=== PATIENT | female | born 1980 | race Caucasian/White ===

== ENCOUNTER 2024-07-13 14:18 | Inpatient (IN) | payer SELFPAY ==
[2024-07-13] VITALS (60 sets, daily range): BP systolic 91–129; BP diastolic 57–81; PULSE 98–134; RESP 18–26; TEMP 37–37.5; O2SAT 84–100; BMI 19.6
--- NOTE | 2024-07-13 14:28 | XRR_ITS ---
PROCEDURE INFORMATION: Exam: XR Chest Exam date and time: 07/13/2024 2:50 PM Age: 43 years old Clinical indication: Device placement; Ett placement (vent status); Additional info: Intubated TECHNIQUE: Imaging protocol: Radiologic exam of the chest. Views: 1 view. COMPARISON: No relevant prior studies available. FINDINGS: Tubes, catheters and devices: Endotracheal tube tip is approximately 5 cm above the cynthia. Orogastric tube tip is in the stomach with the side port in the lower thoracic esophagus. Lungs: Unremarkable. No consolidation. Pleural spaces: Unremarkable. No pleural effusion. No pneumothorax. Heart/Mediastinum: Upper normal heart size, accentuated by portable technique. Bones/joints: Unremarkable. XR/XR chest 1V portable [id number] IMPRESSION: 1. Support hardware as above. 2. No acute findings.
[2024-07-13] MEDS: propofol 1,000 MG/100 ML INJ 1.7 MG IV (14:45)
[2024-07-13 14:53] LABS: ABG PCO2 64.4 mmHg (35-45); ABG PH Result 7.18 (7.35-7.45); Alveolar-Arterial Oxygen Gradi 20.8 mmHg (5-10); Arterial Blood Gas Hematocrit 30.2 % (37-47); Base Excess ABG -4.7 mmol/L (-2.0-2.0); Blood Gas Allen Test Pos; Blood Gas Operator Identificat CAK; Blood Gas Sample Site Radial, left; Blood Gas Sample Type Arterial; Blood Gas Tidal Volume 0.35; Carboxyhemoglobin 0.7 %THgb (0.4-20.1); HCO3 ABG 24.1 mmol/L (22-26); HGB O2 Sat 96.3 % (95-100); Ionized Calcium Level - ABG 1.2 mmol/L (1.1-1.4); Methemoglobin 1.4 % (0.4-1.5); Oxygen Device VENT; Oxygen Saturation ABG 98.4; PO2 FiO2 Ratio Arterial Blood 230; Potassium Level - ABG 4.5 mmol/L (3.5-5.0); Total Hemoglobin 9.8 g/dL (12-16)
[2024-07-13] MEDS: enoxaparin 40 mg/0.4 mL Syringe SUBCUT (15:09)
[2024-07-13] MEDS: pantoprazole 40 mg SDV IVP (15:10)
[2024-07-13] MEDS: methylPREDNISolone sod succ 125 mg/2 mL INJ IVP (15:10)
[2024-07-13] MEDS: morphine 4 mg/mL SDV 1 mL 2 MG IVP (15:14)
--- NOTE | 2024-07-13 15:18 | PM.HP ---
Providers/Chief Complaint Admitting Physician: Tani Roldan MD Chief Complaint: Resp Failure, COPD History of Present Illness Most of the history taken through the review from outside hospital. Ayla Dickens is a 43 year old female possible history of COPD, depression, anxiety, autism was brought into [facility] at around 8 PM on 07/12 with difficulty in breathing. Apparently patient has been getting short of breath for last 24 hours requiring albuterol inhalation multiple times. In the ER patient was agitated and received IV Benadryl, Solu-Medrol, IV magnesium and Xopenex every 2 hours. By morning patient's respiratory status continued to worsen and was requiring up to 6 L. As per the conversation from the ER physician patient went into respiratory arrest with her saturations going down to 50% and need to be intubated. Patient never lost pulse and did not have CPR. She was managed with ambo ventilation. First ABG postintubation showed a pH of 6.9 with a CO2 of 114, PaO2 of 225. Repeat ABG in 30 minutes showed pH of 7.1, pCO2 70, pO2 of 262. Other blood work showed white count of 17.4, hemoglobin of 10.3, platelet, 488, sodium of 137 with potassium 4.1, creatinine of 0.9, D-dimer of 0.66, magnesium of 2.7, UA negative for UTI. On arrival to the ICU patient was on Versed of 2, heart rate running at 120 bpm saturating 99%, blood pressure of 121 over 70 mmHg. Patient had episode of agitation after which her saturations went down to 70%. She was found to have elevated peak pressures going up to 42 Review of Systems General: Reports: ROS unobtainable due to endotracheal tube Medications/Allergies Allergies Allergy/AdvReac Type Severity Reaction Status Date / Time fentanyl Allergy Severe ALGY-Rash Verified 07/13/24 18:28 Penicillins Allergy Severe Unknown Verified 07/13/24 15:51 Vitals/I&O/Wt Last Vital Signs Temp 98.6 F 07/13/24 14:50 Pulse 125 H 07/13/24 14:50 Resp 26 H 07/13/24 15:14 BP 121/69 07/13/24 14:50 Pulse Ox 98 07/13/24 14:50 FiO2 30 07/13/24 14:26 Weight last 48 hrs Weight 56.812 kg Physical Exam Narrative: General: Intubated, sedated HEENT: PERRLA, pupils bilaterally equal and reactive Chest: Bilateral bronchial breath sounds all over lung martinez with diffuse spread rhonchi all over lung martinez left more than right, decreased air entry on the right side CVS: S1-S2 regular, no murmurs, tachycardia, no gallops, no rubs Abdomen: Soft, nontender, no organomegaly, bowel sounds present Neuro: No focal deficits, no facial deformity, AO x3, power 5/5 in all limbs Quick SOFA Score: Respiratory Rate: 20 Blood Pressure: 127/70 [place] Coma Scale: 6 qSOFA Score: 1 If qSOFA score 2 or greater, continue: PaO2/FiO2 Ratio (mmHg): 230 Blood Pressure Mean: 89 Bilirubin (mg/dl): 0.3 Platelets (x10?/ml): 388 Creatinine (mg/dl): 1.0 SOFA Score: 5 Evaluation: Current stage of sepsis: sepsis Sepsis stage criteria used: [facility] Sep-1 and Sepsis-3 Crystalloid fluids: less than 30 mL/kg crystalloid fluids ordered Reasons: heart failure Blood cultures ordered: Yes Possible source: pulmonary Focused Exam: Vital signs: Temp Pulse Resp BP Pulse Ox O2 Del Method FiO2 07/13/24 15:34 121 H 07/13/24 15:29 22 H 100 40 07/13/24 15:27 120 H 21 H 99 Mechanical Ventila tion 50 07/13/24 15:14 26 H 07/13/24 14:50 98.6 F 125 H 121/69 98 07/13/24 14:45 127 H 125/79 07/13/24 14:40 134 H 125/79 94 07/13/24 14:35 126 H 125/79 94 07/13/24 14:30 120 H 129/76 100 07/13/24 14:26 20 H 99 30 07/13/24 14:25 118 H 129/76 100 07/13/24 14:20 117 H 100 Date exam was performed: 07/13/24 Time exam was performed: 18:26 Sepsis Screen No Definite Risk 07/13/24 16:46 Respiratory Rate 20 breaths/min H (12 - 18) 07/13/24 16:40 Blood Pressure 127/70 mmHg 07/13/24 16:40 [place] Coma Scale Score 6 07/13/24 16:59 Quick SOFA Score 1 07/13/24 15:52 SOFA Score: ABG PO2/FiO2 Ratio 230 07/13/24 14:41 Shauna Coma Scale Score 6 07/13/24 16:59 Blood Pressure Mean 89 mmHg 07/13/24 16:40 Total Bilirubin 0.3 mg/dL (0.15-1.2) 07/13/24 16:11 Platelet Count 388 10^3/cmm (157-399) 07/13/24 16:11 Creatinine 1.0 mg/dL (0.5-0.9) H 07/13/24 16:11 Data 07/13/24 16:11 07/13/24 16:11 A&P Assessment and plan (1) Sepsis: SIRS: Tachycardic, Febrile, Leukocytosis Source: Pneumonia End organ damage: Acute infectious encephalopathy Lactic acid within normal limits Patient did not receive full 30 mL/kg BW given concerns for respiratory failure. (2) Acute respiratory failure with hypoxia and hypercapnia: (3) COPD exacerbation: (4) Methamphetamine abuse: (5) Respiratory acidosis: Plan 43-year-old female with possible past history of COPD was sent in as a transfer from outside hospital with concerns for respiratory failure found to have hypoxic and hypercapnic respiratory failure with concerns for respiratory acidosis. Acute hypoxic and hypercapnic respiratory failure: High peak pressures currently on mechanical ventilator. Stat chest x-ray, ABG. Sedation with propofol, Precedex. Not able to use fentanyl with a possible history of severe allergy. Dilaudid 0.2 every 1 hour as needed for analgesia. Maintain saturation 90%. Repeat chest x-ray and ABG every morning. Stat CBC, CMP, lactate, procalcitonin, sputum culture, blood culture, MRSA swab, respiratory viral panel, urinalysis, D-dimer, MRSA swab. Will plan for CT chest with or without contrast once D-dimer is available. For now start patient on ipratropium, Xopenex every 4 hour, Pulmicort twice daily. Solu-Medrol 125 mg stat followed by 40 mg every 6 hour. Empirically start patient on IV meropenem and azithromycin. Dose renally. If MRSA swab positive will add vancomycin. Strict input output charting, daily weights. Hu catheterization. Check echocardiogram. Amphetamine abuse: Urine drug screen at outside hospital positive for amphetamine and benzos. Treatment as above. Monitor for withdrawal. Tried calling patient's boyfriend's number on chart. Unable to get in touch. Left voice message. Will try to get further medical history about the patient if and when possible. Poor IV access. Will request a PICC line. Will restart home medications once medication list available. Further treatment as per clinical picture. Anesthesia: Propofol, Precedex. Cannot use fentanyl given past history of allergy. Glycemic control: Check A1c. Nutrition: N.p.o. CODE STATUS: Full code PUD prophylaxis: Protonix DVT prophylaxis: Lovenox Discharge planning: Possible home with home health once patient is medically stable. Admitted ICU. This documentation was created by [employer] digital asset coordinator software. Every effort was made to ensure accuracy of digital asset coordinator. Any obvious errors or omissions should be clarified with the author of the document. Attestations Medical Necessity Statement*: Admission for more than 2 midnights for management of acute hypoxic hypercapnic respiratory failure with respiratory acidosis, sepsis, amphetamine use Critical Care Time: The high probability of a clinically significant, sudden or life threatening deterioration of the patient's [pulmonary, cardiac] system(s) required my full and direct attention, intervention and personal management. The critical care time is as shown. This time is in addition to time spent performing any reported procedures but includes the following: [x] Data and vital sign review and interpretation [x] Patient assessment, examination and intervention [x] Documentation [x] Medication orders and management Critical Care Time (min): 90 Coding Level of Care Code Critical Care >/= 30 minutes Critical care time (in minutes): 90 The high probability of a clinically significant, sudden or life threatening deterioration, as referenced in this documentation, required my full and direct attention, intervention and personal management. The critical care time shown is in addition to time spent performing any reported separately billable procedures and includes the following: [x] Data and vital sign review and interpretation [x] Patient assessment, examination and intervention [x] Medication orders and management [x] Patient/Family updates as able [x] Care Coordination and Documentation. Other Coding Information This patient has a high probability of clinically significant, sudden or life threatening deterioration of the patient's (neurological/pulmonary/cardiac/renal/ID/endocrine) systems required my full, direct attention, the highest level of physician preparedness for urgent intervention and personal management. I managed/supervised life or organ supporting interventions that required frequent physician assessment. I devoted my full attention in the ICU to the direct care of this patient for the period of time indicated above. Time I spent with family or surrogate(s) is included only if the patient was incapable of providing necessary information or participating in decision making. This time includes the following services provided: Telemetry review Mechanical Ventilation Hemodynamic interpretation, assessment and management Review and interpretation of CXR Review and interpretation of lab values Review and interpretation of microbiologic data and culture results Review of medications and administration Review and interpretation of Nutrition requirements and management Discussion of management with other consultants and services Clinical update to family members Diagnoses Acute respiratory failure with hypoxia and hypercapnia J96.01; J96.02 COPD exacerbation J44.1 Methamphetamine abuse F15.10 Respiratory acidosis E87.29 Sepsis A41.9
[2024-07-13] MEDS: ipratropium 0.5 mg/2.5 mL Neb INHALATION ×2 (15:25→19:59)
[2024-07-13] MEDS: levalbuterol 0.63 mg/3 mL Neb INHALATION ×2 (15:25→19:59)
--- NOTE | 2024-07-13 15:27 | XRR_ITS ---
PROCEDURE INFORMATION: Exam: XR Chest Exam date and time: 07/13/2024 3:59 PM Age: 43 years old Clinical indication: Device placement; Picc; Additional info: Post picc insertion, brendan placing in icu 5. Should be ready at 1555 TECHNIQUE: Imaging protocol: Radiologic exam of the chest. Views: 1 view. COMPARISON: CR XR chest 1V portable [id number] 07/13/2024 2:50 PM FINDINGS: Tubes, catheters and devices: Interval placement of a right arm PICC with the tip in the lower SVC. Endotracheal tube tip is 2.9 cm above the cynthia. Orogastric tube tip is in the stomach with the side port above the GE junction in the lower thoracic esophagus. Lungs: No new airspace disease. No consolidation. Pleural spaces: Unremarkable. No pleural effusion. No pneumothorax. Heart/Mediastinum: Unremarkable. No cardiomegaly. Bones/joints: Unremarkable. XR/XR chest 1V portable [id number] IMPRESSION: 1. Right arm PICC tip in the lower SVC. 2. Orogastric tube tip in the stomach with the side port in the lower thoracic esophagus. Consider advancing 8-10 cm for more optimal positioning. 3. Remainder stable.
[2024-07-13] MEDS: magnesium sulfate premix 2 GM/50 ML PIGGYBACK IV (15:56)
[2024-07-13] MEDS: azithromycin 250 mg Tablet 500 MG PO (15:56)
[2024-07-13] MEDS: meropenem 1,000 mg SDV 1000 MG IVP ×2 (15:57→22:18)
[2024-07-13] MEDS: sodium chloride 0.9% 1,000 ML 75 ML IV (15:58)
[2024-07-13] MEDS: methylPREDNISolone sod succ 40 mg/mL INJ IVP ×2 (16:03→21:04)
[2024-07-13 16:30] LABS: Basophils % 0.1 %; Lymphocytes # 0.4 10^3/uL (0.8-4.8); Lymphocytes % 2.1 %; Mean Corpuscular HGB Conc 28.2 g/dL (30-55); Mean Corpuscular Hemoglobin 21.3 pg (27-33); Mean Corpuscular Volume 75.5 fl (85-98); Mean Platelet Volume 9.2 fL (7.4-10.4); Monocytes # 0.8 10^3/uL (0.2-0.9); Neutrophils # 19.01 10^3/uL (1.8-7.7); Nucleated Red Blood Cells % 0 %; Platelet Count 388 10^3/cmm (157-399); Red Blood Count 4.37 10^6/uL (3.85-5.65); Red Cell Distribution Width 15.6 % (12.1-15.1); White Blood Count 20.45 10^3/uL (3.29-11.43)
--- NOTE | 2024-07-13 16:40 | PICC.NOTE ---
Triple lumen PICC placed to right brachial vein. Referred to vascular access nurse for PICC placement due to poor access and need for multiple IV drips. Risks and benefits discussed and informed consent obtained ugently per Dr. Roldan. Pt sedated and intubated with no family available at this time. Right arm assessed with right brachial vein measuring 4.0 mm, straight, and apparent best choice for placement. Using sterile technique and MST, right brachial vein accessed x 1 stick. Mid-arm circumference measured 10 cm from right AC 27 cm. Trimmed cath 39 cm with 0 cm external length noted. CXR shows tip in lower SVC, in good position for use per radiologist. Line secured with stat-lock. Insertion site covered with Secureport IV and TSM. Report given to bedside nurse, TALITA Powell.
[2024-07-13 16:48] LABS: D Dimer 0.66 ug/mLFEU (0-0.59)
[2024-07-13 16:54] LABS: Lactic Sepsis W/Reflex 1.2 mmol/L (0.5-2.2)
[2024-07-13 17:11] LABS: Procalcitonin 0.35 ng/mL (0-0.5); Vitamin B12 318 pg/mL (232-1245)
--- NOTE | 2024-07-13 17:21 | XRR_ITS ---
PROCEDURE INFORMATION: Exam: XR Chest Exam date and time: 07/13/2024 5:51 PM Age: 43 years old Clinical indication: Device placement; Other: Og; Additional info: Og tube placement TECHNIQUE: Imaging protocol: Radiologic exam of the chest. Views: 1 view. COMPARISON: CR (CHEST, ) 07/13/2024 3:59 PM FINDINGS: Tubes, catheters and devices: Orogastric tube has been advanced in the interval with the side port now below the GE junction. The tip is not included in the field of view. Lungs: Unremarkable. No consolidation. Pleural spaces: Unremarkable. No pleural effusion. No pneumothorax. Heart/Mediastinum: Unremarkable. No cardiomegaly. Bones/joints: Unremarkable. XR/XR chest 1V portable [id number] IMPRESSION: Interval advancement of the orogastric tube with the side port now below the GE junction.
[2024-07-13 17:22] LABS: Alanine Aminotransferase 24 U/L (0-33); Alkaline Phosphatase 87 U/L (35-105); Anion Gap 18.9 (5-19); Aspartate Amino Transferase 34 U/L (0-32); Blood Urea Nitrogen 24 mg/dL (6-20); Calcium 8.9 mg/dL (8.5-10.5); Carbon Dioxide 20 mmol/L (22-29); Chloride 103 mmol/L (98-107); Creatinine Clr Calc Pharmacy 67.6428; Globulin 2.7 g/dL (1.3-4.6); Glomerular Filtration Rate 60.2 mL/min (90-130); Glucose 151 mg/dL (65-115); Iron 11 ug/dL (37-145); Osmolality Calculated 291 mOsm/kg (285-295); Percent Saturation 2.6 % (20-50); Potassium 4.9 mmol/L (3.5-5.1); Sodium 137 mmol/L (136-145); Total Bilirubin 0.3 mg/dL (0.15-1.2); Total Iron Binding Capacity 416 mcg/dl; Total Protein 6.7 g/dL (6.6-8.7); Unsaturated Iron Binding 405 ug/dL (112-347)
[2024-07-13] MEDS: dexmedeTOMIDine 0.9 % NaCL 400 MCG/100 ML PREMIX IV (17:33)
[2024-07-13 18:29] LABS: MRSA PCR OZH (swab) MRSA Detected (Not Detecte)
[2024-07-13] MEDS: propofol 1,000 MG/100 ML INJ 17.04 MG IV (19:20)
[2024-07-13] MEDS: VANCOMYCIN ADD-Vantage 750 MG in 0.9% NaCl ADD-Vantage 250 ML 250 MG IV (19:27)
[2024-07-13] MEDS: budesonide 0.5 mg/2 mL Neb INHALATION (19:59)
[2024-07-13 20:37] LABS: ABG PH Result 7.22 (7.35-7.45); Arterial Blood Gas Hematocrit 28.5 % (37-47); Base Excess ABG -3.5 mmol/L (-2.0-2.0); Blood Gas Allen Test Pos; Blood Gas Sample Site Radial, right; Blood Gas Sample Type Arterial; HCO3 ABG 24.6 mmol/L (22-26); HGB O2 Sat 84.1 % (95-100); Ionized Calcium Level - ABG 1.2 mmol/L (1.1-1.4); Methemoglobin 0.9 % (0.4-1.5); Oxygen Saturation ABG 85.7; PO2 ABG 57.7 mmHg (80.0-100.0); Potassium Level - ABG 4.3 mmol/L (3.5-5.0); Total Hemoglobin 9.3 g/dL (12-16)
[2024-07-13 20:38] LABS: ABG PCO2 60.2 mmHg (35-45)
[2024-07-13 20:40] LABS: Alveolar-Arterial Oxygen Gradi 15.3 mmHg (5-10); Blood Gas Operator Identificat JDB; Blood Gas Tidal Volume 0.38; Oxygen Device VENT; PO2 FiO2 Ratio Arterial Blood 164
--- NOTE | 2024-07-13 20:40 | PC.NURSE ---
Propofol rate Dr. Perdomo contacted about patient's continuing agitation. Patient's current propofol protocol only allows for a maximum of 50 mcg. Received verbal order from Dr. Perdomo for other propofol protocol with a maximum rate of 80 mcg.
[2024-07-13 20:58] LABS: Adenovirus Not Detected (NOT DETECT); Chlamydia Pneumoniae Not Detected (NOT DETECT); Coronavirus 229E,HKU1,NL63,OC4 Not Detected (NOT DETECT); Human Metapneumovirus Not Detected (NOT DETECT); Human Rhinovirus/Enterovirus Not Detected (NOT DETECT); Influenza A Not Detected (NOT DETECT); Influenza A H1 Not Detected (NOT DETECT); Influenza A H1-2009 Not Detected (NOT DETECT); Influenza A H3 Not Detected (NOT DETECT); Influenza B Not Detected (NOT DETECT); Mycoplasma Pneumoniae Not Detected (NOT DETECT); Parainfluenza Virus Type 1 Not Detected (NOT DETECT); Parainfluenza Virus Type 2 Not Detected (NOT DETECT); Parainfluenza Virus Type 3 Not Detected (NOT DETECT); Parainfluenza Virus Type 4 Not Detected (NOT DETECT); Respiratory Syncytial Virus A Not Detected (NOT DETECT); Respiratory Syncytial Virus B Not Detected (NOT DETECT); SARS-COV-2 Not Detected (NOT DETECT)
[2024-07-13] MEDS: propofol 1,000 MG/100 ML INJ 22.16 MG IV (23:36)
--- NOTE | 2024-07-13 23:37 | PC.NURSE ---
Addendum entered by Savanah Davis RN 07/13/24 23:48: Witnessed waste of Propofol 5ml. Original Note: Waste Wasted 5 ml of propofol. Witnessed by TALITA Pavon.
[2024-07-14] VITALS (19 sets, daily range): BP systolic 87–135; BP diastolic 60–87; PULSE 90–102; RESP 18–308; TEMP 36.2–36.6; O2SAT 93–100
[2024-07-14] MEDS: levalbuterol 0.63 mg/3 mL Neb INHALATION ×3 (00:19→07:44)
[2024-07-14] MEDS: ipratropium 0.5 mg/2.5 mL Neb INHALATION (00:19)
--- NOTE | 2024-07-14 00:50 | XRR_ITS ---
PROCEDURE INFORMATION: Exam: XR Chest Exam date and time: 07/14/2024 12:52 AM Age: 43 years old Clinical indication: Shortness of breath and other: Neck swelling; Patient HX: Worsening work of breathing under ventilation. Swelling to neck bilaterally. ; Additional info: Crepitus TECHNIQUE: Imaging protocol: Radiologic exam of the chest. Views: 1 view. COMPARISON: CR (CHEST, ) 07/13/2024 5:51 PM FINDINGS: Tubes, catheters and devices: The tip of the right upper extremity PICC line projects over the superior vena cava. The tip of the nasogastric tube is not seen, but projects below the gastroesophageal junction level. The tip of the endotracheal tube projects 7.8 cm above the cynthia. Lungs: No consolidation or pulmonary edema. Pleural spaces: No pleural effusion. No pneumothorax. Heart/Mediastinum: Cardiomediastinal silhouette is normal in size. Bones/joints: No acute fractures. Soft tissues: Soft tissue emphysema in bilateral supraclavicular regions is increased compared to previous exams. XR/XR chest 1V portable [id number] IMPRESSION: 1. Soft tissue emphysema in bilateral supraclavicular regions is increased compared to previous exams. CT of the neck and chest with IV contrast is recommended to further evaluate. 2. The tip of the right upper extremity PICC line projects over the superior vena cava. The tip of the nasogastric tube is not seen, but projects below the gastroesophageal junction level. The tip of the endotracheal tube projects 7.8 cm above the cynthia.
[2024-07-14] MEDS: midazolam hcl 100 MG/100 ML BAG IV (00:51)
[2024-07-14] MEDS: norepinephrine 4 MG/250 ML BAG 7.5 MG IV (01:06)
[2024-07-14 01:23] LABS: ABG PCO2 46.8 mmHg (35-45); ABG PH Result 7.33 (7.35-7.45); Alveolar-Arterial Oxygen Gradi 13.8 mmHg (5-10); Arterial Blood Gas Hematocrit 27.5 % (37-47); Base Excess ABG -1.3 mmol/L (-2.0-2.0); Blood Gas Allen Test Pos; Blood Gas Operator Identificat JDB; Blood Gas Sample Site Brachial, right; Blood Gas Sample Type Arterial; Carboxyhemoglobin 0.9 %THgb (0.4-20.1); HCO3 ABG 24.7 mmol/L (22-26); Ionized Calcium Level - ABG 1.2 mmol/L (1.1-1.4); Methemoglobin 1.1 % (0.4-1.5); Oxygen Device VENT; PO2 ABG 84.1 mmHg (80.0-100.0); PO2 FiO2 Ratio Arterial Blood 240; Potassium Level - ABG 4.6 mmol/L (3.5-5.0)
--- NOTE | 2024-07-14 02:14 | PC.NURSE ---
Verbal orders Received verbal order from Dr. Perdomo at 0045 for versed drip. Received verbal order from Dr. Perdomo at 0120 for levophed drip.
--- NOTE | 2024-07-14 02:18 | PM.MISC ---
Miscellaneous Note Purpose of Documentation: Was called earlier in the evening that the patient was attempting to sit up on the bed and moving her legs trying to unhook her keenan catheter despite a dose of 50mg/kg/min of Propofol, so her sedation was escalated to 80mg/kg/min. Midazolam was added due to concerns of developing hypotension. I was called by the nurse that RT noted that the patient had developed crepitus and lung sounds could not be appreciated, concerning for pneumomediastinum. A stat CXR was ordered and the patient was seen to have subq emphysema. [facility] was contacted who requested for a CT chest to r/o a pneumothorax first. The patient's CT neck w/ contrast and CTA chest was negative for a PTX, but positive for extensive pneumomediastinum.
--- NOTE | 2024-07-14 02:31 | CTR_ITS ---
PROCEDURE INFORMATION: Exam: CT Neck With Contrast Exam date and time: 07/14/2024 2:46 AM Age: 43 years old Clinical indication: Patient HX: Extensive subqu emphysema to neck bilaterally noted on latest cxr. Patient intubated with og and picc in place. ; Additional info: Respiratory failure, evaluate subcutaneous emphysema TECHNIQUE: Imaging protocol: Computed tomography of the neck with contrast. Radiation optimization: All CT scans at this facility use at least one of these dose optimization techniques: automated exposure control; mA and/or kV adjustment per patient size (includes targeted exams where dose is matched to clinical indication); or iterative reconstruction. Contrast material: OMNI 350; Contrast volume: 80 ml; Contrast route: INTRAVENOUS (IV); COMPARISON: CR (CHEST, ) 07/14/2024 12:52 AM RADIATION DOSE METRICS: Total DLP (mGy-cm): 112.15 FINDINGS: Tubes, catheters and devices: Nasogastric tube and endotracheal tube noted. Salivary glands: Normal. Glands are normal in size. Pharynx: Unremarkable. No significant tonsillar enlargement. Prevertebral and retropharyngeal spaces: Retropharyngeal air noted. Larynx: Unremarkable. Epiglottis is normal. Thyroid: Normal. No enlarged or calcified nodules. Trachea: Visualized trachea is unremarkable. Lungs: Unremarkable as visualized. Pleural spaces: No pneumothorax. Lymph nodes: Unremarkable. No lymphadenopathy. Bones/joints: Unremarkable. No acute fracture. Soft tissues: Extensive subcutaneous emphysema throughout the neck extending to the skull base and over the chest in a symmetric fashion. There is pneumomediastinum incompletely imaged. CT/CT neck w con* [id number] IMPRESSION: Extensive subcutaneous emphysema with pneumomediastinum. Source not identified. This is incompletely imaged.
--- NOTE | 2024-07-14 02:31 | CTR_ITS ---
PROCEDURE INFORMATION: Exam: CTA Chest With Contrast Exam date and time: 07/14/2024 2:51 AM Age: 43 years old Clinical indication: Patient HX: Extensive subqu emphysema to neck bilaterally noted on latest cxr. Patient intubated with og and picc in place. ; Additional info: Acute respiratory failure, rule out pneumothorax TECHNIQUE: Imaging protocol: Computed tomographic angiography of the chest with contrast. Exam focused on the arteries. 3D rendering (Not supervised by radiologist): MIP and/or 3D reconstructed images were created by the technologist. Radiation optimization: All CT scans at this facility use at least one of these dose optimization techniques: automated exposure control; mA and/or kV adjustment per patient size (includes targeted exams where dose is matched to clinical indication); or iterative reconstruction. Contrast material: OMNI 350; Contrast volume: 65 ml; Contrast route: INTRAVENOUS (IV); COMPARISON: CR (CHEST, ) 07/14/2024 12:52 AM RADIATION DOSE METRICS: Total DLP (mGy-cm): 281.69 FINDINGS: Tubes, catheters and devices: Nasogastric tube passes in the stomach. Endotracheal tube tip terminates 2 cm above the cynthia. Pulmonary arteries: Normal. No pulmonary emboli. Aorta: Unremarkable. No aortic aneurysm. No aortic dissection. Trachea: Trachea and airways grossly normal noted secrete disruption of the airways identified. Lungs: 4 mm pleural-based nodule left lower lob lobe. Adjacent 2 mm subpleural nodule just above this within the left lower lobe. Pleural spaces: No pneumothorax. Heart: Unremarkable. No cardiomegaly. No pericardial effusion. Mediastinal space: There is pneumomediastinum with air within all mediastinal stations. Lymph nodes: Unremarkable. No enlarged lymph nodes. Bones/joints: Unremarkable. No acute fracture. Soft tissues: Unremarkable. CT/CT angio chest PE protcl [id number] IMPRESSION: 1. Extensive pneumomediastinum without definite source identified. 2. Small left lower lobe pulmonary nodules of the 4 mm. Recommend interval follow-up per Fleischner society criteria.
[2024-07-14] MEDS: iohexol 350 mg/mL 500 mL Btl (per mL) IV (03:01)
[2024-07-14] MEDS: methylPREDNISolone sod succ 40 mg/mL INJ IVP (03:30)
[2024-07-14] MEDS: propofol 1,000 MG/100 ML INJ 8.52 MG IV (03:39)
[2024-07-14] MEDS: sodium chloride 0.9% 1,000 ML 75 ML IV (04:41)
--- NOTE | 2024-07-14 05:30 | PC.RESP ---
at 0025 changed ventilator rate to 20 per doctor order. at around 0035 patient trying to sit up in bed thrashing arms and legs and was not synchronous with ventilator. Requested nurse to call overnight hospitalist For ventilator changes. Order received entered patient room noted patient had swelling at the shoulder going into the neck with crepitus. Requested nurse to call doctor to come to bedside. doctor came to bedside stat chest x ray was ordered. ventilator order to Decrease the ventilator rate to 14 tidal volume to 300 and peep to 5
[2024-07-14 05:51] LABS: Basophils % 0.1 %; Hematocrit 28.5 % (36-47); Lymphocytes # 0.3 10^3/uL (0.8-4.8); Lymphocytes % 1.2 %; Mean Corpuscular HGB Conc 28.8 g/dL (30-55); Mean Corpuscular Hemoglobin 21.7 pg (27-33); Mean Corpuscular Volume 75.4 fl (85-98); Mean Platelet Volume 9.4 fL (7.4-10.4); Monocytes # 0.8 10^3/uL (0.2-0.9); Monocytes % 3.9 %; Neutrophils # 20.21 10^3/uL (1.8-7.7); Neutrophils % 94.1 %; Nucleated Red Blood Cells % 0 %; Platelet Count 339 10^3/cmm (157-399); Red Blood Count 3.78 10^6/uL (3.85-5.65); Red Cell Distribution Width 15.8 % (12.1-15.1); White Blood Count 21.48 10^3/uL (3.29-11.43)
--- NOTE | 2024-07-14 06:01 | PC.NURSE ---
Attempt to reach family members Dr. Hamilton attempted to reach contacts in patient's chart regarding patient transfer to [facility] in [place]. All attempts unsuccessful.
--- NOTE | 2024-07-14 06:02 | PC.NURSE ---
[facility] transfer oneill Spoke with Sruthi Young at [facility] regarding patient transfer. Patient received room assignment at [facility] CCU room 44. Receiving doctor is Dr. Mike Bhatia per transfer center.
[2024-07-14 06:07] LABS: ABG PCO2 47.7 mmHg (35-45); ABG PH Result 7.34 (7.35-7.45); Alveolar-Arterial Oxygen Gradi 16.6 mmHg (5-10); Arterial Blood Gas Hematocrit 27.9 % (37-47); Base Excess ABG -0.1 mmol/L (-2.0-2.0); Blood Gas Allen Test Pos; Blood Gas Operator Identificat JDB; Blood Gas Sample Site Brachial, right; Blood Gas Sample Type Arterial; Carboxyhemoglobin 0.9 %THgb (0.4-20.1); HCO3 ABG 25.8 mmol/L (22-26); HGB O2 Sat 90.4 % (95-100); Ionized Calcium Level - ABG 1.2 mmol/L (1.1-1.4); Oxygen Device VENT; Oxygen Saturation ABG 92.1; PO2 ABG 62.5 mmHg (80.0-100.0); PO2 FiO2 Ratio Arterial Blood 178; Potassium Level - ABG 4.5 mmol/L (3.5-5.0); Total Hemoglobin 9.1 g/dL (12-16)
[2024-07-14 06:15] LABS: Alanine Aminotransferase 16 U/L (0-33); Albumin Level 3.3 g/dL (3.5-5.2); Alkaline Phosphatase 70 U/L (35-105); Anion Gap 16.3 (5-19); Aspartate Amino Transferase 20 U/L (0-32); Blood Urea Nitrogen 20 mg/dL (6-20); Calcium 7.7 mg/dL (8.5-10.5); Carbon Dioxide 21 mmol/L (22-29); Chloride 103 mmol/L (98-107); Chol HDL Ratio 2.55 mg/dL (0.0-4.40); Cholesterol 130 mg/dL (0-200); Creatinine Clr Calc Pharmacy 96.6325; Glomerular Filtration Rate 90.9 mL/min (90-130); Glucose 133 mg/dL (65-115); HDL Cholesterol 51 mg/dL (60-100); Magnesium 2.1 mg/dL (1.7-2.3); Osmolality Calculated 287 mOsm/kg (285-295); Phosphorus 3.4 mg/dL (2.5-4.5); Potassium 4.3 mmol/L (3.5-5.1); Sodium 136 mmol/L (136-145); Total Bilirubin 0.2 mg/dL (0.15-1.2); Total Protein 5.3 g/dL (6.6-8.7); Triglycerides 590 mg/dL (0-150)
[2024-07-14] MEDS: meropenem 1,000 mg SDV 1000 MG IVP (06:17)
[2024-07-14 06:22] LABS: Procalcitonin 0.38 ng/mL (0-0.5)
--- NOTE | 2024-07-14 06:34 | PC.NURSE ---
Report called to [facility] Report called to [facility]. TALITA Arechiga receiving nurse.
[2024-07-14 06:37] LABS: Folate Level 9.7 ng/mL (4.8-37.3); LDL Cholesterol Direct 58 mg/dL (0-100)
[2024-07-14] MEDS: budesonide 0.5 mg/2 mL Neb INHALATION (07:43)
--- NOTE | 2024-07-14 07:44 | PHA.VACGOAL ---
Vancomycin Goal - Goal Vancomycin Goal:: 15-20 mg/L Vancomycin Indication:: Pneumonia (SEPSIS) - Therapy Current therapy:: Meropenem Day of therpy:: Day [1]of [] . Actual body weight (kg): 56 kg - Data Labs: WBC 21.48 10^3/uL (3.29-11.43) H 07/14/24 05:35 RBC 3.78 10^6/uL (3.85-5.65) L 07/14/24 05:35 Hgb 8.20 g/dL (11.27-16.99) L 07/14/24 05:35 Hct 28.5 % (36-47) L 07/14/24 05:35 MCV 75.4 fl (85-98) L 07/14/24 05:35 MCH 21.7 pg (27-33) L 07/14/24 05:35 MCHC 28.8 g/dL (30-55) L 07/14/24 05:35 RDW 15.8 % (12.1-15.1) H 07/14/24 05:35 Sodium 136 mmol/L (136-145) 07/14/24 05:35 Potassium 4.3 mmol/L (3.5-5.1) 07/14/24 05:35 Chloride 103 mmol/L (98-107) 07/14/24 05:35 Carbon Dioxide 21 mmol/L (22-29) L 07/14/24 05:35 Anion Gap 16.3 (5-19) 07/14/24 05:35 BUN 20 mg/dL (6-20) 07/14/24 05:35 Creatinine 0.7 mg/dL (0.5-0.9) 07/14/24 05:35 GFR Calculation 90.9 mL/min (90-130) 07/14/24 05:35 Treatment plan:: new consult Regimen:: New start vancomycin for Pneumonia/Sepsis. Patient started on maintenance dose of 750 mg q12h last night. Renal function improving, Scr trending down to 0.7 mg/dL. Continue current dose. Trough to be ordered before 4th maintenance dose or sooner if clinically indicated.
[2024-07-14] MEDS: VANCOMYCIN ADD-Vantage 750 MG in 0.9% NaCl ADD-Vantage 250 ML 250 MG IV (07:57)
[2024-07-14 08:36] LABS: Estmated Average Glucose 97
--- NOTE | 2024-07-14 10:49 | P.TS_ITS ---
Transfer Summary Providers Date of Admission: 07/13/24 14:18 Date of Discharge/Transfer: 07/14/24 Attending Provider at Admission: Tani Roldan MD Attending Provider at Transfer: Tani Roldan MD Transfer Plans: Anticipated date of transfer: 07/14/24 . Receiving Facility: [facility] . Diagnoses at Discharge Discharge Diagnosis (1) Acute respiratory failure with hypoxia and hypercapnia: Status: Acute (2) COPD exacerbation: Status: Acute (3) Methamphetamine abuse: Status: Acute (4) Respiratory acidosis: Status: Acute (5) Sepsis: Status: Acute Reason for Visit Reason for Visit Resp Failure, COPD Hospital Course Hospital Course Most of the history taken through the review from outside hospital. Ayla Dickens is a 43 year old female possible history of COPD, depression, anxiety, autism was brought into [facility] at around 8 PM on 07/12 with difficulty in breathing. Apparently patient has been getting short of breath for last 24 hours requiring albuterol inhalation multiple times. In the ER patient was agitated and received IV Benadryl, Solu-Medrol, IV magnesium and Xopenex every 2 hours. By morning patient's respiratory status continued to worsen and was requiring up to 6 L. As per the conversation from the ER physician patient went into respiratory arrest with her saturations going down to 50% and need to be intubated. Patient never lost pulse and did not have CPR. She was managed with ambo ventilation. First ABG postintubation showed a pH of 6.9 with a CO2 of 114, PaO2 of 225. Repeat ABG in 30 minutes showed pH of 7.1, pCO2 70, pO2 of 262. Other blood work showed white count of 17.4, hemoglobin of 10.3, platelet, 488, sodium of 137 with potassium 4.1, creatinine of 0.9, D-dimer of 0.66, magnesium of 2.7, UA negative for UTI. On arrival to the ICU patient was on Versed of 2, heart rate running at 120 bpm saturating 99%, blood pressure of 121 over 70 mmHg. Patient had episode of agitation after which her saturations went down to 70%. She was found to have elevated peak pressures going up to 42 Patient was started on treatment for respiratory failure with nebulization, IV antibiotics, steroids and sedating medications with propofol but required Versed as well because of agitation. Could not use fentanyl given her history of severe agitation. She was started on Dilaudid 0.5 every 1 hour as needed. Patient's ABG continued to show gradual improvement in respiratory acidosis and hypercapnia. Overnight patient developed more agitation, CTA and chest x-ray showed extensive pneumomediastinum along with subcutaneous emphysema. Care was discussed overnight by the personnel interviewer with button inspector at [facility] who accepted the care and patient was transferred for further care at [facility]. Physical Exam Narrative: Transferred before could be examined. Urinary Catheter Management: Hu: Cath Placed During This Visit: yes Reason for Continuing Indwelling Catheter: Accurate Measurement of Urinary Output in Critically Ill Patients Urinary Catheter Date of Insertion: 07/13/24 Urinary Catheter Time of Insertion: 16:39 TS Data Studies Completed and Pending Pending at discharge Category Date Time Status Bacterial Antigen Stat Lab 07/13/24 14:28 Ordered Blood Culture Stat Lab 07/13/24 16:12 Results Sputum Culture and Gram Stain Routine Lab 07/13/24 16:35 Received Urinalysis Routine Lab 07/13/24 14:28 Ordered Completed Studies During Hospitalization Category Date Time Status CT neck w con* [id number] Routine Cat Scan 07/14/24 02:31 Completed CTA chest [CT angio chest PE protcl [id number]] Stat Cat Scan 07/14/24 02:31 Completed CXRP [XR chest 1V portable [id number]] Routine Exams 07/13/24 15:27 Completed XR chest 1V portable [id number] Stat Exams 07/13/24 14:28 Completed XR chest 1V portable [id number] Stat Exams 07/14/24 00:50 Completed XR chest 1V portable [id number] Urgent Exams 07/13/24 17:21 Completed Laboratory Last Values WBC 21.48 10^3/uL (3.29-11.43) H 07/14/24 05:35 RBC 3.78 10^6/uL (3.85-5.65) L 07/14/24 05:35 Hgb 8.20 g/dL (11.27-16.99) L 07/14/24 05:35 Hct 28.5 % (36-47) L 07/14/24 05:35 MCV 75.4 fl (85-98) L 07/14/24 05:35 MCH 21.7 pg (27-33) L 07/14/24 05:35 MCHC 28.8 g/dL (30-55) L 07/14/24 05:35 RDW 15.8 % (12.1-15.1) H 07/14/24 05:35 Plt Count 339 10^3/cmm (157-399) 07/14/24 05:35 MPV 9.4 fL (7.4-10.4) 07/14/24 05:35 Neut % (Auto) 94.1 % 07/14/24 05:35 Lymph % (Auto) 1.2 % 07/14/24 05:35 [place] % (Auto) 3.9 % 07/14/24 05:35 Eos % (Auto) 0.0 % 07/14/24 05:35 Baso % (Auto) 0.1 % 07/14/24 05:35 Neut # (Auto) 20.21 10^3/uL (1.8-7.7) H 07/14/24 05:35 Lymph # (Auto) 0.3 10^3/uL (0.8-4.8) L 07/14/24 05:35 [place] # (Auto) 0.8 10^3/uL (0.2-0.9) 07/14/24 05:35 Eos # (Auto) 0.0 10^3/uL (0.0-0.8) 07/14/24 05:35 Baso # (Auto) 0.0 10^3/uL (0.0-0.1) 07/14/24 05:35 Nucleated RBC % (auto) 0 % 07/14/24 05:35 Nucleated RBCs # 0.0 /100WBC 07/14/24 05:35 D-Dimer 0.66 ug/mLFEU (0-0.59) H 07/13/24 16:11 Specimen Type Arterial 07/14/24 05:43 Sample Site Brachial, right 07/14/24 05:43 ABG pH 7.34 (7.35-7.45) L 07/14/24 05:43 ABG pCO2 47.7 mmHg (35-45) H 07/14/24 05:43 ABG pO2 62.5 mmHg (80.0-100.0) L 07/14/24 05:43 ABG PO2/FiO2 Ratio 178 07/14/24 05:43 ABG HCO3 25.8 mmol/L (22-26) 07/14/24 05:43 ABG O2 Saturation 92.1 07/14/24 05:43 ABG Base Excess -0.1 mmol/L (-2.0-2.0) 07/14/24 05:43 Felice Test Pos 07/14/24 05:43 A-a O2 Gradient 16.6 mmHg (5-10) H 07/14/24 05:43 Hematocrit 27.9 % (37-47) L 07/14/24 05:43 Hgb O2 Saturation 90.4 % (95-100) L 07/14/24 05:43 Carboxyhemoglobin 0.9 %THgb (0.4-20.1) 07/14/24 05:43 Methemoglobin 1.0 % (0.4-1.5) 07/14/24 05:43 Total Hemoglobin 9.1 g/dL (12-16) L 07/14/24 05:43 Sodium 138.0 mmol/L (131-143) 07/14/24 05:43 Potassium 4.5 mmol/L (3.5-5.0) 07/14/24 05:43 Glucose 137.0 mg/dL (70-115) H 07/14/24 05:43 Ionized Calcium 1.2 mmol/L (1.1-1.4) 07/14/24 05:43 O2 Delivery Device Vent 07/14/24 05:43 FiO2 35.0 % 07/14/24 05:43 Tidal Volume 0.30 07/14/24 05:43 PEEP 5.0 cmH20 07/14/24 05:43 Telecommunication Tower Technician ID [id number] 07/14/24 05:43 Sodium 136 mmol/L (136-145) 07/14/24 05:35 Potassium 4.3 mmol/L (3.5-5.1) 07/14/24 05:35 Chloride 103 mmol/L (98-107) 07/14/24 05:35 Carbon Dioxide 21 mmol/L (22-29) L 07/14/24 05:35 Anion Gap 16.3 (5-19) 07/14/24 05:35 BUN 20 mg/dL (6-20) 07/14/24 05:35 Creatinine 0.7 mg/dL (0.5-0.9) 07/14/24 05:35 GFR Calculation 90.9 mL/min (90-130) 07/14/24 05:35 Glucose 133 mg/dL (65-115) H 07/14/24 05:35 Estimat Average Glucose 97 07/14/24 05:35 Hemoglobin A1c 5.0 % (4.0-6.0) 07/14/24 05:35 Calculated Osmolality 287 mOsm/kg (285-295) 07/14/24 05:35 Lactic Acid 1.2 mmol/L (0.5-2.2) 07/13/24 16:11 Calcium 7.7 mg/dL (8.5-10.5) L 07/14/24 05:35 Phosphorus 3.4 mg/dL (2.5-4.5) 07/14/24 05:35 Magnesium 2.1 mg/dL (1.7-2.3) 07/14/24 05:35 Iron 11 ug/dL (37-145) L 07/13/24 16:11 TIBC 416 mcg/dl 07/13/24 16:11 % Saturation 2.6 % (20-50) L 07/13/24 16:11 Unsat Iron Binding 405 ug/dL (112-347) H 07/13/24 16:11 Total Bilirubin 0.2 mg/dL (0.15-1.2) 07/14/24 05:35 AST 20 U/L (0-32) 07/14/24 05:35 ALT 16 U/L (0-33) 07/14/24 05:35 Alkaline Phosphatase 70 U/L (35-105) 07/14/24 05:35 Total Protein 5.3 g/dL (6.6-8.7) L D 07/14/24 05:35 Albumin 3.3 g/dL (3.5-5.2) L 07/14/24 05:35 Globulin 2.0 g/dL (1.3-4.6) 07/14/24 05:35 Triglycerides 590 mg/dL (0-150) H 07/14/24 05:35 Cholesterol 130 mg/dL (0-200) 07/14/24 05:35 LDL Cholesterol Direct 58 mg/dL (0-100) 07/14/24 05:35 LDL Cholesterol, Calc Not Reportable 07/14/24 05:35 HDL Cholesterol 51 mg/dL (60-100) L 07/14/24 05:35 LDL/HDL Ratio Not Reportable 07/14/24 05:35 Cholesterol/HDL Ratio 2.55 mg/dL (0.0-4.40) 07/14/24 05:35 Vitamin B12 318 pg/mL (232-1245) 07/13/24 16:11 Folate 9.7 ng/mL (4.8-37.3) 07/14/24 05:35 Procalcitonin 0.38 ng/mL (0-0.5) 07/14/24 05:35 TSH 0.50 uIU/mL (0.27-4.20) 07/13/24 16:11 Nasal MRSA (PCR) [place] detected (Not Detecte) A 07/13/24 15:40 Adenovirus (PCR) Not detected (NOT DETECT) 07/13/24 15:40 C. pneumoniae DNA (PCR) Not detected (NOT DETECT) 07/13/24 15:40 Coronavirus 229E (PCR) Not detected (NOT DETECT) 07/13/24 15:40 Human Metapneumovir PCR Not detected (NOT DETECT) 07/13/24 15:40 Influenza A (H1) PCR Not detected (NOT DETECT) 07/13/24 15:40 Influ A (H1/09) PCR Not detected (NOT DETECT) 07/13/24 15:40 Influenza A (H3) PCR Not detected (NOT DETECT) 07/13/24 15:40 Influenza Type A (PCR) Not detected (NOT DETECT) 07/13/24 15:40 Influenza Type B (PCR) Not detected (NOT DETECT) 07/13/24 15:40 M. pneumoniae (PCR) Not detected (NOT DETECT) 07/13/24 15:40 Parainfluenza 1 (PCR) Not detected (NOT DETECT) 07/13/24 15:40 Parainfluenza 2 (PCR) Not detected (NOT DETECT) 07/13/24 15:40 Parainfluenza 3 (PCR) Not detected (NOT DETECT) 07/13/24 15:40 Parainfluenza 4 (PCR) Not detected (NOT DETECT) 07/13/24 15:40 RSV Type A (PCR) Not detected (NOT DETECT) 07/13/24 15:40 RSV Type B (PCR) Not detected (NOT DETECT) 07/13/24 15:40 Entero/Rhino (PCR) Not detected (NOT DETECT) 07/13/24 15:40 SARS-CoV-2 (PCR) Not detected (NOT DETECT) 07/13/24 15:40 Radiology Impressions Chest X-Ray 07/14/24 00:50 IMPRESSION: 1. Soft tissue emphysema in bilateral supraclavicular regions is increased compared to previous exams. CT of the neck and chest with IV contrast is recommended to further evaluate. 2. The tip of the right upper extremity PICC line projects over the superior vena cava. The tip of the nasogastric tube is not seen, but projects below the gastroesophageal junction level. The tip of the endotracheal tube projects 7.8 cm above the cynthia. Chest CTA 07/14/24 02:31 IMPRESSION: 1. Extensive pneumomediastinum without definite source identified. 2. Small left lower lobe pulmonary nodules of the 4 mm. Recommend interval follow-up per Fleischner society criteria. Neck CT 07/14/24 02:31 IMPRESSION: Extensive subcutaneous emphysema with pneumomediastinum. Source not identified. This is incompletely imaged. Microbiology 07/13/24 16:12 Blood Blood Culture - Preliminary SPECIMEN COLLECTED 07/13/24 16:11 Blood Blood Culture - Preliminary SPECIMEN COLLECTED Recent Clincial Data Last Vital Signs Temp 98 F 07/14/24 08:58 Pulse 95 07/14/24 08:58 Resp 30 H 07/14/24 08:58 BP 125/78 07/14/24 08:58 Pulse Ox 93 07/14/24 08:58 O2 Del Method Mechanical Ventilation 07/14/24 07:48 FiO2 35 07/14/24 07:48 Vital Signs Temp Pulse Resp BP Pulse Ox O2 Del Method FiO2 07/14/24 08:58 98 F 95 30 H 125/78 93 07/14/24 07:48 96 20 H 98 Mechanical Ventilation 35 07/14/24 07:45 19 H 99 35 07/14/24 06:00 98 07/14/24 04:48 308 H 100 35 07/14/24 04:45 93 22 H 95 Mechanical Ventilation 35 07/14/24 04:07 97.2 F L 07/14/24 04:00 90 105/71 95 07/14/24 03:30 92 111/69 97 07/14/24 03:05 97 26 H 07/14/24 02:30 101 H 135/87 96 07/14/24 02:00 102 H 129/83 96 07/14/24 01:30 102 H 90/60 97 07/14/24 01:05 34 H 96 35 07/14/24 01:00 102 H 87/61 95 07/14/24 00:30 98 96/61 94 07/14/24 00:25 20 H 100 35 07/14/24 00:19 97 18 99 Mechanical Ventilation 35 07/14/24 00:00 98 103/66 99 07/13/24 23:45 98 99/64 100 07/13/24 23:30 98 98/61 99 07/13/24 23:15 98 98/64 100 07/13/24 23:00 98 98/61 98 Intake & Output/Weight 07/12/24 07/13/24 07/14/24 07/15/24 06:59 06:59 06:59 06:59 Intake Total 1619.691 / 1619.691 Output Total 700 / 700 Balance 919.691 / 919.691 Weight 56 kg Vitals Last Vital Signs Temp 98 F 07/14/24 08:58 Pulse 95 07/14/24 08:58 Resp 30 H 07/14/24 08:58 BP 125/78 07/14/24 08:58 Pulse Ox 93 07/14/24 08:58 O2 Del Method Mechanical Ventilation 07/14/24 07:48 FiO2 35 07/14/24 07:48 TS Medications Medications Discontinued Medications Acetaminophen (Acetaminophen 325 Mg Tablet) 650 mg PO Q6H PRN PRN Reason: Mild/Mod Pain Or Temp >/= 101 Albuterol/Ipratropium (Ipratropium-Albuterol 3 Ml Neb) 3 ml INHALATION Q4H.RESPIRATORY GISELLE Azithromycin (Azithromycin 250 Mg Tablet) 500 mg PO DAILY GISELLE; Protocol Last Admin: 07/13/24 15:56 Dose: 500 mg Bisacodyl (Bisacodyl 5 Mg Tablet) 10 mg PO DAILY PRN; Protocol PRN Reason: Constipation (see protocol) Budesonide (Budesonide 0.5 Mg/2 Ml Neb) 0.5 mg INHALATION BID.RESPIRATORY GISELLE Last Admin: 07/14/24 07:43 Dose: 0.5 mg Chlorhexidine Gluconate (Chlorhexidine Gluconate 4% Btl 118 Ml) 1 applic TOPICAL 0100 [facility] Last Admin: 07/14/24 03:15 Dose: Not Given Enoxaparin Sodium (Enoxaparin 40 Mg/0.4 Ml Syringe) 40 mg SUBCUT Q24H GISELLE Last Admin: 07/13/24 15:09 Dose: 40 mg Hydromorphone HCl (Hydromorphone 1 Mg/Ml Inj 1 Ml) 0.2 mg IVP Q1H PRN PRN Reason: intubated for analgesia Piperacillin Sod/Tazobactam (Sod / Sodium Chloride) 50 mls @ 0 mls/hr [id number] GISELLE; Protocol Sodium Chloride (Sodium Chloride 0.9%) 1,000 mls @ 75 mls/hr IV .[id number] GISELLE Last Admin: 07/14/24 04:41 Dose: 75 mls/hr Propofol (Diprivan) 1,000 mg in 100 mls @ 0 mls/hr IV .Q0M GISELLE; Protocol Last Titration: 07/14/24 03:53 Dose: Infused Dexmedetomidine/Sodium Chloride (Precedex) 400 mcg in 100 mls @ 0 mls/hr IV .Q0M GISELLE; Protocol Last Titration: 07/14/24 04:09 Dose: 0 mcg/kg/hr, 0 mls/hr Propofol (Diprivan) Confirm Administered Dose 1,000 mg in 100 mls @ as directed .ROUTE .STK-MED ONE Stop: 07/13/24 14:36 Magnesium Sulfate (Magnesium Sulfate Premix) 2 gm in 50 mls @ 50 mls/hr IV ONCE ONE Stop: 07/13/24 15:52 Last Infusion: 07/13/24 16:56 Dose: Infused Vancomycin HCl 750 mg/ Sodium (Chloride) 250 mls @ 250 mls/hr IV Q12H [facility] Last Admin: 07/14/24 07:57 Dose: 250 mls/hr Propofol (Diprivan) 1,000 mg in 100 mls @ 0 mls/hr IV .Q0M GISELLE; Protocol Last Titration: 07/14/24 04:26 Dose: 20 mcg/kg/min, 6.82 mls/hr Midazolam HCl (Versed) 100 mg in 100 mls @ 0 mls/hr IV .Q0M GISELLE; Protocol Last Titration: 07/14/24 04:58 Dose: 6 mg/hr, 6 mls/hr Norepinephrine Bitartrate (Levophed) 4 mg in 250 mls @ 0 mls/hr IV .Q0M GISELLE; Protocol Last Titration: 07/14/24 02:45 Dose: 0 mcg/min, 0 mls/hr Iohexol (Iohexol 350 Mg/Ml 500 Ml Btl (Per Ml)) 0 ml IV ONCE ONE Stop: 07/14/24 03:01 Last Admin: 07/14/24 03:01 Dose: 145 ml Ipratropium [place] (Ipratropium 0.5 Mg/2.5 Ml Neb) 0.5 mg INHALATION Q4H.RESPIRATORY GISELLE Last Admin: 07/14/24 07:44 Dose: Not Given Lactulose (Lactulose Oral Liq 20 Gm/30 Ml Udc) 10 gm PO DAILY PRN; Protocol PRN Reason: Constipation (see protocol) Levalbuterol HCl (Levalbuterol 0.63 Mg/3 Ml Neb) 0.63 mg INHALATION Q4H.RESPIRATORY GISELLE Last Admin: 07/14/24 07:44 Dose: 0.63 mg Magnesium Hydroxide (Magnesium Hydroxide 30 Ml Udc) 30 ml PO DAILY PRN; Protocol PRN Reason: Constipation (see protocol) Meropenem (Meropenem 1,000 Mg Sdv) 1,000 mg IVP Q8H GISELLE; Protocol Last Admin: 07/14/24 06:17 Dose: 1,000 mg Methylprednisolone Sodium Succinate (Methylprednisolone Sod Succ 125 Mg/2 Ml Inj) 125 mg IVP ONCE ONE Stop: 07/13/24 14:44 Last Admin: 07/13/24 15:10 Dose: 125 mg Methylprednisolone Sodium Succinate (Methylprednisolone Sod Succ 125 Mg/2 Ml Inj) Confirm Administered Dose 125 mg .ROUTE .STK-MED ONE Stop: 07/13/24 14:45 Methylprednisolone Sodium Succinate (Methylprednisolone Sod Succ 40 Mg/Ml Inj) 40 mg IVP Q6H GISELLE Last Admin: 07/14/24 03:30 Dose: 40 mg Morphine Sulfate (Morphine 4 Mg/Ml Sdv 1 Ml) 2 mg IVP Q4H PRN PRN Reason: SEVERE PAIN Last Admin: 07/13/24 15:14 Dose: 2 mg Ondansetron HCl (Ondansetron 2 Mg/Ml Sdv 2 Ml) 4 mg IVP Q8H PRN PRN Reason: vomiting, or N/V if npo Pantoprazole Sodium (Pantoprazole 40 Mg Sdv) 40 mg IVP Q24H GISELLE Last Admin: 07/13/24 15:10 Dose: 40 mg Allergies fentanyl Allergy (Severe, Verified 07/13/24 18:28) ALGY-Rash described as burning of body from inside. possible SJS Penicillins Allergy (Severe, Verified 07/13/24 15:51) Unknown Home Medications No Known Home Medications 07/14/24 [History Confirmed 07/14/24] Discharge Plan Discharge Patient Disposition: Xfer Intermediate Care Fac Prescriptions: No Action No Known Home Medications Patient Instructions: Opioid Safety Transfer Attestations Time Spent in Transfer Care: greater than 30 min Quality Metrics Clinical Quality Measures [ No reported AMI, CVA or VTE this stay] Coding Level of Care Code Acute Code for Chg Fwd Diagnoses Acute respiratory failure with hypoxia and hypercapnia J96.01; J96.02 COPD exacerbation J44.1 Methamphetamine abuse F15.10 Respiratory acidosis E87.29 Sepsis A41.9
== END 2024-07-14 08:30 | disposition short-term general hospital (02) | DRG 871 ==
PROVIDERS: Internal Medicine; Admitting Provider Student in an Organized Health Care Education/Training Program; Visit Provider Student in an Organized Health Care Education/Training Program
DX: A41.9 Sepsis, unspecified organism (principal); J18.9 Pneumonia, unspecified organism; J96.02 Acute respiratory failure with hypercapnia; J96.01 Acute respiratory failure with hypoxia; J86.9 Pyothorax without fistula; J44.0 Chronic obstructive pulmonary disease with (acute) lower respiratory infection; J44.1 Chronic obstructive pulmonary disease with (acute) exacerbation; E87.29 Other acidosis; R65.20 Severe sepsis without septic shock; F15.10 Other stimulant abuse, uncomplicated; I95.9 Hypotension, unspecified; J98.2 Interstitial emphysema
CPT/HCPCS: 36573; 36592; 36600; 51702; 70491; 71045; 71275; 80051; 80053; 80061; 82330; 82607; 82746; 82805; 83036; 83540; 83550; 83605; 83721; 83735; 84100; 84145; 84443; 85025; 85378; 87040; 87070; 87077; 87186; 87205; 87486; 87581; 87633; 94002; 94003; 94640; 94799; 96372; 96376; A4570; C1751; J1650; J2185; J2250; J2270; J2470; J2704; J2919; J3370; J3475; J7030; J7050; J7614; J7626; J7644; Q0144